=== PATIENT | male | born 1940 | race Caucasian/White ===

== ENCOUNTER 2018-06-27 07:23 | Inpatient (IN) ==
--- NOTE | 2018-06-27 08:22 | EKG Report ---
Test Performed on : 06/27/2018 07:46:21 AM Test Reason : WEAKNESS Blood Pressure : / mmHG Vent. Rate : 094 BPM Atrial Rate : 100 BPM P-R Int : 000 ms QRS Dur : 088 ms QT Int : 386 ms P-R-T Axes : 000 044 024 degrees QTc Int : 482 ms Atrial fibrillation. with premature ventricular or aberrantly conducted complexes. Nonspecific ST and T wave abnormality Abnormal ECG When compared with ECG of 14-DEC-2017 07:02, Nonspecific T wave abnormality no longer evident in Anterior leads Unconfirmed Result
[2018-06-27 09:18] LABS: INR 1.64; PROTIME 20.6 Seconds (11.0-16.0); PTT 31.6 Seconds (22.3-41.8)
--- NOTE | 2018-06-27 09:18 | PROVIDER DOCUMENTATION ---
HPI-General Adult - General Chief Complaint: Weakness Stated Complaint: FALL Time Seen by Provider: 06/27/18 09:14 Source: patient Allergies/Adverse Reactions: Patient Allergies Allergy/AdvReac Type Severity Reaction Status Date / Time aspirin Allergy HIVES Verified 09/16/17 15:51 clindamycin AdvReac ANAPHYLAXIS Verified 09/17/17 01:46 Home Medications: Home Medication List Medication Instructions Recorded Confirmed Last Taken Type ATORVAstatin [Lipitor] 10 mg PO DAILY 09/16/17 12/12/17 12/12/17 09:00 History Allopurinol 300 mg PO HS 09/16/17 12/12/17 12/11/17 21:00 History Diltiazem HCl [Cartia Xt] 180 mg PO DAILY 09/16/17 12/12/17 12/12/17 09:00 History Glimepiride 2 mg PO DAILY 09/16/17 12/12/17 12/12/17 09:00 History Lisinopril/Hydrochlorothiazide 10 - 12.5 mg PO DAILY 09/16/17 12/12/17 12/12/17 09:00 History [Lisinopril-Hctz 10-12.5 mg Tab] Metformin [Glucophage] 850 mg PO BID CC 09/16/17 12/12/17 12/12/17 09:00 History Rivaroxaban [Xarelto] 15 mg PO DAILY 09/16/17 12/12/17 12/12/17 09:00 History Acetaminophen [Tylenol] 650 mg PO Q6H PRN PRN tablet 09/21/17 12/12/17 Unknown Rx Cyanocobalamin 1,000 mcg IM DIRECTED 12/12/17 12/12/17 Unknown History Carvedilol [Coreg] 12.5 mg PO BID tablet 12/21/17 Unknown Rx Hydrocodone/APAP 7.5 mg/325 mg 1 ea PO Q4H PRN PRN #16 tab 12/21/17 Unknown Rx [[place]-7.5] Mupirocin Cream [Bactroban Cream] 1 gm TOP BID #22 gm 12/21/17 Unknown Rx Sulfamethoxazole/Tmp D.s. [Septra 1 ea PO Q12HR 14 Days #28 tab 12/21/17 Unknown Rx Ds] - History of Present Illness -Gen Adult Location of Pain/Injury: reports: none Pain Radiation: reports: no radiation Quality of Pain: reports: other (hostory of chronic back pain) Onset/Duration: reports: this morning Timing: reports: constant Context/Activities at Onset: reports: other (felt weak, fell in bathtub could not get up) Associated Symptoms: reports: cough, weakness, other Similar Symptoms Previously?: No Recently seen or treated by another doctor?: No Review of Systems - Adult - REVIEW OF SYSTEMS - ADULT Constitutional: reports: no symptoms reported Eyes: reports: no symptoms reported Ears, Nose, Mouth & Throat: reports: no symptoms reported Cardiovascular: reports: no symptoms reported Respiratory: reports: no symptoms reported Gastrointestinal: reports: no symptoms reported Genitourinary: reports: no symptoms reported Musculoskeletal: reports: back pain Integumentary: reports: no symptoms reported Neurological: reports: no symptoms reported Psychiatric: reports: no symptoms reported Endocrine: reports: no symptoms reported Hematologic/Lymphatic: reports: no symptoms reported Allergic/Immunologic: reports: no symptoms reported Past History - Adult - PAST MEDICAL HISTORY-ADULT Review of Records: reports: Nursing Assessment Review - IMMUNIZATION STATUS Childhood Immunizations: See Nurse Assessment Flu Vaccine: See Nurse Assessment Physical Exam-General - PHYSICAL EXAM-ADULT Initial Vital Signs Reviewed: Yes - CONSTITUTIONAL General Appearance: appears well, alert - EYES Eyes: PERRL/EOMI - HEAD, EARS, NOSE, MOUTH & THROAT HENMT: normocephalic/atraumatic - NECK Neck: non-tender - RESPIRATORY Respiratory: chest non-tender, lungs clear - CARDIOVASCULAR Cardiovascular: normal peripheral pulses, regular rate, rhythm - GASTROINTESTINAL (ABDOMEN) Abdominal Exam: normal bowel sounds, non tender - MUSCULOSKELETAL Back Exam: no CVA tenderness, no vertebral tenderness. negative: CVA tenderness - SKIN Integumentary: normal color, normal turgor, warm/dry - NEUROLOGIC Neurologic: valet runner II-XII nml as tested, grossly normal, no motor/sensory deficits - PSYCHIATRIC Psych/Mental Status: normal mood/affect Progress - PLAN OF CARE/RESULTS Progress/Plan/Lab Results: Vital Signs - 8 hr 06/27/18 07:37 Temperature 97.6 F Pulse Rate 94 H Respiratory Rate 16 Blood Pressure 119/58 O2 Sat by Pulse Oximetry 97 Orders Category Date Time Status BASIC METABOLIC PANEL [CHEM] Stat Lab 06/27/18 08:00 Received CBC WITH DIFF [HEME] Stat Lab 06/27/18 08:00 Results PROTIME WITH INR [COAG] Stat Lab 06/27/18 08:00 Received PTT [COAG] Stat Lab 06/27/18 08:00 Received UA NIMS W/REFLEX CULT [URINALYSIS] Stat Lab 06/27/18 07:49 Uncollected EKG [EKG] Stat Ther 06/27/18 07:49 Draft Result Diagrams: 06/27/18 08:00 06/27/18 10:10 - CONSULTS/PCP/HOSPITALIST Notification #1 *Consult/PCP/Hospitalist*: DR RAMIREZ Time Discussed: 11:25 Reason/Comments: OK TO ADMIT Departure - Departure Date of Disposition Decision: 06/27/18 Time of Disposition Decision: 11:29 DIAGNOSIS: UTI (urinary tract infection), Leukocytosis Disposition: ADMITTED INPATIENT 09 Certified Medical Emergency: Emergent Condition: Good Referrals and Follow-Ups: Elan Ramirez MD [Primary Care Provider] - - Critical Care Note This patient required my direct & personal management of CC.: No Attestation - Physician/ JAZ Attestation Patient care was provided by Advanced Practice Provider:: No The physician spent face to face time with patient:: Yes Advanced Practice Provider documentation review:: Supervising physician onsite and consulted in the evaluation and care of this patient. The physician did have a face to face encounter with the patient.
[2018-06-27 09:40] LABS: BASO# 0.04 X1000 (0.0-0.2); BASO% 0.2 % (0.0-0.8); HEMATOCRIT 43.2 % (42.0-52.0); HEMOGLOBIN 14.1 g/dL (14.0-18.0); IMM GRAN# 0.21 X1000 (0.0-0.04); LYMPH# 1.67 X1000 (1.2-3.4); LYMPH% 7.7 % (20.5-51.1); MCH 29.1 PG (27-31); MCHC 32.6 g/dL (33-37); MCV 89.3 FL (81-99); MONO# 1.59 X1000 (0.11-0.59); MONO% 7.3 % (1.7-9.3); MPV 10.1 FL (7.4-10.4); NEUT# 18.17 X1000 (1.4-6.5); NEUT% 83.8 % (42.2-75.2); PLT 189 X1000 (130-400); RBC 4.84 XMIL (4.7-6.1); RDW 15.7 % (11.5-14.5); WBC 21.68 X1000 (4.8-10.8)
--- NOTE | 2018-06-27 09:51 | Diag Imaging Result Doc PS360 ---
EXAM: CHEST-2 VIEWS 06/27/2018 HISTORY: cough TECHNIQUE: PA and lateral chest COMMENT: There is cardiomegaly. There is increased pulmonary vascularity. There is some ill-defined increased density in both lung bases. IMPRESSION: Cardiomegaly with mild pulmonary edema. Electronically signed by Dax Tenorio 06/27/2018 9:49 AM
--- NOTE | 2018-06-27 10:18 | ED EKG INTERP ---
This chart was entered by Halina Pabon Scribe, acting as scribe for Laila Govea MD. EKG Interpretation - EKG Time of EKG reading by physician:: 07:46 EKG Read and Signed by:: Laila Govea EKG Interpretation (*Must complete 3 of following elements*): Abnormal Rate: 94 Rhythm: afib with premature ventricular or aberrantly conducted complexes [place]: normal QRS: normal CT Interval: normal Comments: nonspecific ST and T wave abnormality Attestation - Physician/ JAZ Attestation Patient care was provided by Advanced Practice Provider:: No The physician spent face to face time with patient:: Yes Advanced Practice Provider documentation review:: Supervising physician onsite and consulted in the evaluation and care of this patient. The physician did have a face to face encounter with the patient. This chart was documented by the indicated scribe, (Halina Pabon Scribe) and accurately reflects the services I performed and decisions made by me, Laila Govea MD, as attested by the provider's signature.
[2018-06-27 10:31] LABS: URINE SOURCE CATH
[2018-06-27 10:45] LABS: PHOSPHORUS 2.9 mg/dL (2.7-4.5)
[2018-06-27 10:49] LABS: AGAP 11; BUN 17 mg/dL (8-22); CALCIUM 9.1 mg/dL (8.8-10.2); CHLORIDE 91 mmol/L (98-107); COSMO 265; ESTIMATED GFR > 60; GLUCOSE 215 mg/dL (70-104); POTASSIUM 4.1 mmol/L (3.5-5.1); SODIUM 128 mmol/L (136-145); TCO2 26 mmol/L (25-35)
[2018-06-27 10:49] LABS: BILIRUBIN URINE NEGATIVE (NEGATIVE); BLOOD URINE SMALL (NEGATIVE); COLOR YELLOW; GLUCOSE URINE NEGATIVE (NEGATIVE); KETONE URINE TRACE mg/dL (NEGATIVE); LEUKOCYTES URINE MODERATE (NEGATIVE); NITRITE URINE POSITIVE (NEGATIVE); PH URINE 5.5; PROTEIN URINE TRACE mg/dL (NEGATIVE); TURBIDITY URINE HAZY (CLEAR); UROBILINOGEN URINE NORMAL (NORMAL)
[2018-06-27 10:53] LABS: UR EPITHELIAL CELLS <10 /HPF (<10); URINE BACTERIA 4+ /HPF; URINE RBC <10 /HPF (<10); URINE WBC 20-40 /HPF (<10)
[2018-06-27 11:01] LABS: BANDS 2 % (0-1); EOS 2 % (1-10); LYMPHS 4 % (21-51); MONO 8 % (1-9); SEGS 84 % (42-75)
[2018-06-27] MEDS ORDERED: LEVAQUIN 500 MG/D5W 500 MG/100 ML IVPB IV ONE (11:25)
[2018-06-27] MEDS ORDERED: NS 1,000 ML IV ONE (11:36)
[2018-06-27] MEDS ORDERED: MORPHINE IV PRN (11:36)
[2018-06-27] MEDS ORDERED: NORCO-7.5 PO ONE (19:01)
[2018-06-27] MEDS ORDERED: NS 1,000 ML IV SCH ×2 (19:15→19:24)
[2018-06-27] MEDS: COREG PO SCH (21:00)
[2018-06-27] MEDS: ZYLOPRIM PO SCH (21:00)
[2018-06-27] MEDS: LIPITOR PO SCH (21:00)
[2018-06-27] MEDS: TYLENOL PO PRN (21:18)
--- NOTE | 2018-06-28 02:52 | HISTORY AND PHYSICAL ---
CHIEF COMPLAINT: Generalized weakness, anorexia and a fall at home. HISTORY OF PRESENT ILLNESS: Mr. Dyson is a 78-year-old, morbidly obese gentleman with chronic atrial fibrillation and type 2 diabetes mellitus who called my office for an appointment due to several days of reduced appetite and general malaise and weakness. This morning he was taking a shower, preparing to come to my office, when he became suddenly more weak, slipped and fell in the bathtub. He was unable to get out. His had to call the rescue squad and an ambulance to get him out of the bed and bring him to the emergency room for evaluation. He was evaluated by the emergency room physician and found to have an elevated white count and an acute pyelonephritis. He denies any fever and says his checked it several times yesterday. He also has not had any hard, shaking chills. He has had some urinary urgency and dribbling for several days, but no actual dysuria. He has had previous urinary tract infections. He denies any nausea or vomiting, but does admit to fairly diminished appetite. He denies any significant injury with the fall, although he scraped his left buttock on the faucet. He has known previous attacks of gout, but has been on allopurinol with no recent attacks. 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 PAST MEDICAL HISTORY: Remarkable for pernicious anemia on B12 replacement since 2009, type 2 diabetes mellitus generally well controlled with oral medications. His last A1c was 6.1%. He also has a history of dyslipidemia and is on atorvastatin. He has been on chronic rate control medications for chronic atrial fibrillation and also takes Xarelto. ALLERGIES: Aspirin and clindamycin. HOME MEDICATIONS: Cardizem CD 180 mg 1 daily, vitamin B12 1000 mcg IM monthly, Xarelto 20 mg daily, allopurinol 300 mg daily, atorvastatin 20 mg at bedtime, carvedilol 12.5 mg twice daily, glimepiride 2 mg with breakfast daily, lisinopril/hydrochlorothiazide 10/12.5 one daily, metformin 850 mg twice daily. PAST SURGICAL HISTORY: Last year he required incision and drainage of an abscess in his buttock. SOCIAL HISTORY: He is and lives with his . 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 He also formerly smoked cigars. REVIEW OF SYSTEMS: General: No fever, chills, night sweats, weight loss. Positive for generalized weakness. HEENT: No recent changes in vision or hearing. Cardiovascular: No history of angina or ischemic heart disease. No history of congestive heart failure or valvular heart disease. He has moderate exertional shortness of breath due to his obesity. He had an echocardiogram in April with preserved left ventricular function and unremarkable valvular function. He does have some biatrial enlargement and a prominent right ventricle. Respiratory: No cough, shortness of breath, wheezing. He has a previous history of obstructive sleep apnea, but has been unable to tolerate CPAP. GI: No recent abdominal pain, constipation, diarrhea, heartburn, hematemesis, nausea or vomiting. : As above. Musculoskeletal: As above. Skin: He has a long history of mild pressure phenomenon on his buttocks. He normally sits at home in a recliner and leans back in the recliner at night to sleep. He has not slept in a bed for 7-10 years, as he has difficulty getting comfortably and difficulty to get out of bed. Neurologic: No history of strokes or seizures, no dizziness preceding the fall. He believes he slipped on the wet, soapy, slick tub. Psychiatric: No memory, mood or thought disorders noted. Endocrine: No history of thyroid disease. PHYSICAL EXAMINATION: VITAL SIGNS: Temperature 97.6, pulse is 94, blood pressure 119/58, respirations 16, O2 saturation 97% on room air. . GENERAL APPEARANCE: Morbidly obese, pleasant gentleman in no distress. HEENT: Pupils are equal, round and reactive to light. Extraocular movements intact. Sclerae unremarkable. Oropharynx is benign with fair dentition. NECK: Supple with full range of motion, no JVD, venous distention, adenopathy or bruits. LUNGS: Clear to auscultation bilaterally. CARDIAC: Irregularly regular rate and rhythm, rate of 88. S1 is variable. S2 is unremarkable. No murmurs or gallops. ABDOMEN: Morbidly obese, soft and nontender with active bowel sounds. No guarding or rebound tenderness noted MUSCULOSKELETAL: Has 2+ bony swelling at both knees. He has no cyanosis, clubbing or edema. No CVA tenderness. Pedal pulses are 2+ and equal dorsalis pedis, but the posterior tibial pulses are not palpated. DERMATOLOGIC: Has numerous seborrheic keratoses on his back and lower legs. There is widespread purplish discoloration on both buttocks with some induration and a few tiny superficial ulcers. NEUROLOGICAL: Mental status is normal. He moves all extremities on command. Cranial nerve examination is unremarkable. Gait is not tested. DATABASE: White blood count 21,700, hemoglobin 14.1, hematocrit 43.2%, platelet count is normal. There is a left shift. Sodium 128, BUN 17, creatinine 1.0, glucose 215. Urinalysis: Trace protein, positive nitrite, moderate leukocytes, 20-40 WBC per high powered field, 4+ bacteria. ASSESSMENT: 1. Acute pyelonephritis with leukocytosis and generalized weakness. 2. Type 2 diabetes mellitus. 3. Stage 1-2 pressure phenomenon on his buttocks. 4. History of hypertension. 5. History of gout. 6. Chronic atrial fibrillation on anticoagulation. 7. Pernicious anemia, treated. 8. Morbid obesity. 9. Obstructive sleep apnea, untreated. TREATMENT PLAN: He has already received 1 dose of intravenous Levaquin. He will be admitted, treated with intravenous normal saline, placed on diabetic diet and encouraged at every opportunity to get up and get out of bed and maintain his mobility. I will request the wound care nurse to evaluate him tomorrow and treat as needed. Will check a bladder scan postvoid residual prior to discharge and consider consult if elevated. cc: Elan Ramirez MD
[2018-06-28] MEDS ORDERED: PRINZIDE 10/12.5MG PO SCH (09:00)
[2018-06-28] MEDS: AMARYL PO SCH (09:49)
[2018-06-28] MEDS: TYLENOL PO PRN (09:49)
[2018-06-28] MEDS: GLUCOPHAGE PO SCH ×2 (09:49→16:51)
[2018-06-28] MEDS: COREG PO SCH ×2 (09:49→20:45)
[2018-06-28] MEDS: XARELTO PO SCH (09:49)
[2018-06-28] MEDS: CARDIZEM CD PO SCH (09:49)
[2018-06-28] MEDS ORDERED: LEVAQUIN 500 MG/D5W 500 MG/100 ML IVPB IV SCH (11:00)
[2018-06-28] MEDS: NORCO-7.5 PO PRN ×2 (11:33→17:29)
[2018-06-28] MEDS ORDERED: CALMOSEPTINE OINTMENT TOP PRN (14:42)
[2018-06-28] MEDS: ZYLOPRIM PO SCH (20:45)
[2018-06-28] MEDS: LIPITOR PO SCH (20:45)
[2018-06-29] MEDS: NORCO-7.5 PO PRN ×4 (00:05→20:15)
[2018-06-29] MEDS: AMARYL PO SCH (08:33)
[2018-06-29] MEDS: XARELTO PO SCH (08:33)
[2018-06-29] MEDS: GLUCOPHAGE PO SCH ×2 (08:33→16:23)
[2018-06-29] MEDS: COREG PO SCH ×2 (08:33→20:14)
[2018-06-29] MEDS: CARDIZEM CD PO SCH (08:33)
[2018-06-29] MEDS: SEPTRA DS PO SCH ×2 (10:23→20:15)
[2018-06-29] MEDS: LIPITOR PO SCH (20:14)
[2018-06-29] MEDS: ZYLOPRIM PO SCH (20:15)
[2018-06-30] MEDS: NORCO-7.5 PO PRN ×3 (01:57→14:14)
[2018-06-30 07:23] LABS: BASO# 0.06 X1000 (0.0-0.2); BASO% 0.3 % (0.0-0.8); IMM GRAN# 0.15 X1000 (0.0-0.04); IMM GRAN% 0.8 % (0.0-0.5); LYMPH# 2.91 X1000 (1.2-3.4); LYMPH% 16.5 % (20.5-51.1); MCH 28.7 PG (27-31); MCHC 31.8 g/dL (33-37); MCV 90.2 FL (81-99); MONO% 6.8 % (1.7-9.3); MPV 9.6 FL (7.4-10.4); NEUT# 13.33 X1000 (1.4-6.5); NEUT% 75.6 % (42.2-75.2); PLT 253 X1000 (130-400); RBC 4.88 XMIL (4.7-6.1); RDW 15.5 % (11.5-14.5); WBC 17.65 X1000 (4.8-10.8)
[2018-06-30 07:36] LABS: AGAP 12; ALB/GLOB RATIO 0.8; ALKALINE PHOSPHATASE 81 U/L (32-122); BUN 13 mg/dL (8-22); CALCIUM 8.6 mg/dL (8.8-10.2); CHLORIDE 98 mmol/L (98-107); COSMO 271; CREATININE 0.8 mg/dL (0.7-1.2); ESTIMATED GFR > 60; GLUCOSE 110 mg/dL (70-104); GOT 26 U/L (10-34); GPT 30 U/L (10-44); POTASSIUM 3.9 mmol/L (3.5-5.1); SODIUM 135 mmol/L (136-145); TCO2 25 mmol/L (25-35); TOTAL BILIRUBIN 1.52 mg/dL (0.20-1.00); TOTAL PROTEIN 6.8 g/dL (6.3-8.3)
[2018-06-30] MEDS: SEPTRA DS PO SCH (08:21)
[2018-06-30] MEDS: COREG PO SCH (08:21)
[2018-06-30] MEDS: XARELTO PO SCH (08:22)
[2018-06-30] MEDS: AMARYL PO SCH (08:22)
[2018-06-30] MEDS: GLUCOPHAGE PO SCH (08:22)
[2018-06-30] MEDS: CARDIZEM CD PO SCH (08:22)
[2018-06-30 09:56] VITALS: BP 123/70
--- NOTE | 2018-06-30 21:14 | DISCHARGE SUMMARY ---
ADMISSION DATE: 06/27/2018 DISCHARGE DATE: 06/30/2018 DISCHARGE DIAGNOSES: 1. Acute pyelonephritis. 2. Hyponatremia. 3. Diabetes mellitus type 2, well controlled. 4. Stage II decubitus on the buttocks. OPERATIVE PROCEDURES: None. CONSULTATIONS: None. HOSPITAL COURSE: The patient was admitted after having a extremely weak spell at home in which he fell in the shower. He was transported here and found to have urinary tract infection. Subsequent urine culture grew Klebsiella pneumoniae with no significant resistance pattern. The patient was switched off of IV Levaquin and onto Septra DS, which was tolerated well by the patient. On the day of discharge, the patient stated his desire to be discharged home. He still felt that he was feeling much better. His white cell count was down to 17,000, which is still markedly elevated, but he really had no fever and was feeling much better. I discussed followup with the patient. Also per Dr. Ramirez's recommendation, the bladder scan was performed the previous day. Prevoid he had a volume of 190, postvoid it was less than 30, so he has no signs of obstructive uropathy. His BUN and creatinine are stable. The patient is instructed to call Dr. Ramirez Monday for followup next week in particular if they need to go into the wound clinic for the decubitus on his buttocks. The patient does have a Roho mattress at home. cc: MD Elan Fox MD
== END 2018-06-30 16:39 | disposition home or self-care (01) | DRG 690 ==
LOC: SUPCPDRO → ED 07:23 → EDIPHOLD 12:35 → 3N 23:38
PROVIDERS: ADMIT Internal Medicine; ATTEND Internal Medicine
CPT/HCPCS: 71020; 71046; 80048; 80053; 81001; 82948; 83605; 83735; 84100; 84443; 85025; 85610; 85730; 87040; 87077; 87088; 87186; 93005; 96365; 96366; 99285; A9270; J1956; J7030; XXXXX